=== PATIENT | male | born 1965 | race Caucasian/White ===

== ENCOUNTER 2016-07-23 09:27 | Day surgery (SDC) | payer BC ==
--- NOTE | ~2016-07-23 | EGD ---
EGD REPORT [facility] [address] [address] NAME: YOUSIF JUSTICE JR : 65 STATUS : REG [facility]#: [id number] AGE: 51 ADM/REG DATE : 07/23/16 MR#: [id number] REPORT SERV DATE: 07/23/16 DICTATED BY: TE MAX DATE: 07/23/16 REPORT STATUS : Draft TRANSCRIBED BY: [employer] DATE: 07/23/16 [facility] Patient Name: Yousif Justice Jr Date of : 1965 Attending MD: TE MAX MD Procedure Date No Time: 07/23/2016 Procedure: Colonoscopy Indications: Screening for colorectal malignant neoplasm Referring MD: ROHIT CAMARENA MD Medicines: as per anesthesia Complications: No immediate complications. Procedure: Pre-Anesthesia Assessment: - ASA Grade Assessment: I - A normal, healthy patient. After I obtained informed consent, the scope was passed under direct vision. Throughout the procedure, the patient's blood pressure, pulse, and oxygen saturations were monitored continuously. The PCF [id number] was introduced through the anus and advanced to the cecum, identified by appendiceal orifice and ileocecal valve. The colonoscopy was performed without difficulty. The patient tolerated the procedure. The quality of the bowel preparation was fair. Findings: The perianal and digital rectal examinations were normal. A sessile polyp was found in the sigmoid colon. The polyp was 5 mm in size. The polyp was removed with a jumbo cold forceps. Resection and retrieval were complete. Internal hemorrhoids were found during endoscopy and were mild. Impression: - One 5 mm polyp in the sigmoid colon. Resected and retrieved. - Internal hemorrhoids. Recommendation: - Await pathology results. - Repeat colonoscopy for surveillance based on pathology results. Procedure Code(s): --- Professional --- 53535, Colonoscopy, flexible, proximal to splenic flexure; with biopsy, single or multiple Diagnosis Code(s): --- Professional --- D12.5, Benign neoplasm of sigmoid colon K64.8, Other hemorrhoids EGD REPORT [facility] [address] [address] NAME: YOUSIF JUSTICE JR : 65 STATUS : REG [facility] PAT#: [id number] AGE: 51 ADM/REG DATE : 07/23/16 MR#: [id number] REPORT SERV DATE: 07/23/16 DICTATED BY: TE MAX. DATE: 07/23/16 REPORT STATUS : Draft TRANSCRIBED BY: [employer] DATE: 07/23/16 Z12.11, Encounter for screening for malignant neoplasm of colon CPT copyright 2013 [employer]. All rights reserved. The codes documented in this report are preliminary and upon cpc coder review may be revised to meet current compliance requirements. TE MAX MD 07/23/2016 11:41 AM This report has been signed electronically. Number of Addenda: 0 Note Initiated On: 07/23/2016 11:14 AM Scope Withdrawal Time 0 hours 9 minutes 28 seconds [id number] [facility] [id number]
[~2016-07-23 09:27] MED LIST: METHOC750B PO; NEUR300 PO
== END 2016-07-23 23:59 | disposition home or self-care (01) ==
LOC: DMU 09:27
PROVIDERS: Internal Medicine Gastroenterology
PROC: 0DBN8ZZ Excision of Sigmoid Colon, Via Natural or Artificial Opening Endoscopic (ICD-10-PCS; principal; 2016-07-23 11:00)
DX: Z12.11 Encounter for screening for malignant neoplasm of colon (principal); D12.5 Benign neoplasm of sigmoid colon; K64.8 Other hemorrhoids; K44.9 Diaphragmatic hernia without obstruction or gangrene; Z98.890 Other specified postprocedural states; Z87.891 Personal history of nicotine dependence; Z79.899 Other long term (current) drug therapy
CPT/HCPCS: 88305